=== PATIENT | male | born 1980 | race Caucasian/White ===

== ENCOUNTER 2022-07-05 07:26 | Emergency (ER) | payer BC ==
[2022-07-05] MEDS ORDERED: Sodium Chloride 0.9% 1,000 ML IV ONE (07:34)
[2022-07-05] MEDS ORDERED: HYDROmorphone 1 MG/ML Syringe IVPUSH ONE (07:34)
[2022-07-05 08:12] LABS: ANION GAP 14.1 mmol/L (5-15)
[2022-07-05] MEDS ORDERED: Ketorolac 30 MG/ML SDV IVPUSH ONE (08:30)
[2022-07-05] MEDS ORDERED: Tamsulosin 0.4 MG Cap.ER PO ONE (08:45)
[2022-07-05 08:59] VITALS: BP 147/82; PULSE 74
== END 2022-07-05 09:17 | disposition home or self-care (01) ==
LOC: KA.ED 07:26
DX: N13.2 Hydronephrosis with renal and ureteral calculous obstruction (principal); D72.828 Other elevated white blood cell count; Z88.0 Allergy status to penicillin
CPT/HCPCS: 36415; 74176; 80053; 81001; 85025; 96361; 96374; 96375; 99284; 99284-25; A9270-GY; J1170; J1885; J7030